=== PATIENT | female | born 1980 | race African-American/Black ===

== ENCOUNTER 2016-07-22 10:43 | Emergency (ER) | payer MEDICAID, OTHER ==
[~2016-07-22] VITALS: Ht 162.6 cm; Wt 143.6 kg
[~2016-07-22 10:43] MED LIST: 1-ME1LIQ PO; ADVAI500I PO; ALBU8I INH; BENZ100 PO; GUAI200UDC PO; PRED20 PO; SULF-154 PO
[2016-07-22 10:44] VITALS: BP 167/95; PULSE 92; RESP 20; TEMP 98.3; O2SAT 93
--- NOTE | 2016-07-22 12:09 | PD ---
HPI Chief Complaint: Respiratory Symptoms Time Seen by Provider: 12:04 Travel History International Travel<30 days: No Contact w/Intl Traveler<30days: No Traveled to known affect area: No History of Present Illness HPI Patient is a 36-year-old female presenting to emergency department for evaluation of shortness of breath. Patient reports a history of asthma, she's been out of her Advair and pro-air for approximately one week. Patient reports getting short of breath with the slightest movement. Patient also reports wheezing, subjective fever, chills, cough, nasal congestion. She denies any headaches, nausea, vomiting, abdominal pain. PFSH Past Medical History Arthritis: Yes Asthma: Yes Blood Disorders: No Anxiety: No Depression: No Heart Rhythm Problems: No Cancer: No High Cholesterol: No Chemotherapy: No Chest Pain: No Congestive Heart Failure: No COPD: No Cerebrovascular Accident: No Diabetes: No Diminished Hearing: No Endocrine: No Gastrointestinal Disorders: No GERD: No Glaucoma: No Headaches: No Hepatitis: No Hiatal Hernia: No Hypertension: Yes Immune Disorder: No Kidney Stones: No Neurologic: No Psychiatric: No Reproductive: No Respiratory: Yes (ASTHMA) Myocardial Infarction: No Radiation Therapy: No Renal Failure: No Seizures: No Sickle Cell Disease: No Sleep Apnea: No Thyroid Disease: No Ulcer: No PNEUMOCCOCAL Vaccine (Year): 2 ?: Not LMP: 07/21/2016 Menopausal: No : 3 Para: 2 Miscarriage: 1 Tubal Ligation: Yes Past Surgical History Abdominal Surgery: No AICD: No Cardiac Surgery: No Section: Yes (X2) Ear Surgery: No Endocrine Surgery: No Eye Surgery: No Genitourinary Surgery: No Gynecologic Surgery: Yes (csection x2) Neurologic Surgery: No Oral Surgery: No Pacemaker: No Thoracic Surgery: No Social History Alcohol Use: No Tobacco Use: No Substance Use: No Allergies-Medications (Allergen,Severity, Reaction): Coded Allergies: Moreira (Verified Allergy, Severe, HIVES, 07/22/16) Pineapple (Verified Allergy, Severe, HIVES, 07/22/16) Reported Meds & Prescriptions Reported Meds & Active Scripts Active Prednisone 20 Mg Tab 20 Mg PO BID 5 Days Ventolin Hfa 18 GM Inh (Albuterol Sulfate) 90 Mcg/Act Aer 2 Puff INH Q4-6H PRN Advair Diskus Inh (Fluticasone-Salmeterol Inh) 500-50 Mcg/Blist Aer 1 Puff INH BID Rinse mouth after use. Review of Systems Except as stated in HPI: all other systems reviewed are Neg General / Constitutional: Positive: Fever, Chills HENT: Positive: Congestion, No: Headaches Cardiovascular: No: Chest Pain or Discomfort Respiratory: Positive: Cough, Shortness of Breath, Wheezing Gastrointestinal: No: Nausea, Abdominal Pain Musculoskeletal: No: Myalgias Physical Exam Narrative GENERAL: Obese, well-developed, alert female. Resting comfortably in no acute distress. SKIN: Warm and dry. HEAD: Atraumatic. Normocephalic. EYES: Pupils equal and round. No scleral icterus. No injection or drainage. ENT: No nasal bleeding or discharge. Mucous membranes pink and moist. NECK: Trachea midline. No JVD. CARDIOVASCULAR: Regular rate and rhythm. No murmur appreciated. RESPIRATORY: No accessory muscle use. Significant expiratory wheezing throughout, diminished in bases. No nasal flaring, no retractions, no increased work of breathing at rest. GASTROINTESTINAL: Abdomen obese, soft, non-tender, nondistended. Hepatic and splenic margins not palpable. MUSCULOSKELETAL: No obvious deformities. No clubbing. No cyanosis. No edema. NEUROLOGICAL: Awake and alert. No obvious cranial nerve deficits. Motor grossly within normal limits. Normal speech. PSYCHIATRIC: Appropriate mood and affect; insight and judgment normal. Data Data Last Documented VS Vital Signs Date Time Temp Pulse Resp B/P Pulse Ox O2 Delivery O2 Flow Rate FiO2 07/22/16 15:30 80 19 169/95 95 07/22/16 12:26 21 07/22/16 10:44 98.3 Room Air Orders Complete Blood Count With Diff (07/22/16 12:03) Comprehensive Metabolic Panel (07/22/16 12:03) Chest, Pa & Lat (07/22/16 12:03) Methylprednisolone So Succ Inj (Solumedr (07/22/16 12:15) Albuterol-Ipratropium Neb (Duoneb Neb) (07/22/16 12:15) Albuterol Neb (Albuterol Neb) (07/22/16 13:45) Labs Laboratory Tests Test 07/22/16 12:15 White Blood Count 6.0 TH/MM3 Red Blood Count 4.36 MIL/MM3 Hemoglobin 11.6 GM/DL Hematocrit 34.4 % Mean Corpuscular Volume 79.0 FL Mean Corpuscular Hemoglobin 26.6 PG Mean Corpuscular Hemoglobin 33.7 % Concent Red Cell Distribution Width 15.1 % Platelet Count 492 TH/MM3 Mean Platelet Volume 6.9 FL Neutrophils (%) (Auto) 54.1 % Lymphocytes (%) (Auto) 27.8 % Monocytes (%) (Auto) 5.5 % Eosinophils (%) (Auto) 11.2 % Basophils (%) (Auto) 1.4 % Neutrophils # (Auto) 3.2 TH/MM3 Lymphocytes # (Auto) 1.7 TH/MM3 Monocytes # (Auto) 0.3 TH/MM3 Eosinophils # (Auto) 0.7 TH/MM3 Basophils # (Auto) 0.1 TH/MM3 CBC Comment DIFF FINAL Differential Comment Sodium Level 142 MEQ/L Potassium Level 3.7 MEQ/L Chloride Level 107 MEQ/L Carbon Dioxide Level 24.7 MEQ/L Anion Gap 10 MEQ/L Blood Urea Nitrogen 8 MG/DL Creatinine 0.72 MG/DL Estimat Glomerular Filtration 111 ML/MIN Rate Random Glucose 89 MG/DL Calcium Level 9.1 MG/DL Total Bilirubin 0.4 MG/DL Aspartate Amino Transf 10 U/L (AST/SGOT) Alanine Aminotransferase 15 U/L (ALT/SGPT) Alkaline Phosphatase 70 U/L Total Protein 8.5 GM/DL Albumin 3.6 GM/DL MDM Medical Decision Making Medical Screen Exam Complete: Yes Emergency Medical Condition: Yes Interpretation(s) Vital Signs Date Time Temp Pulse Resp B/P Pulse Ox O2 Delivery O2 Flow Rate FiO2 07/22/16 10:44 98.3 92 20 167/95 93 Room Air Differential Diagnosis Abdomen exacerbation versus bronchitis versus pneumonia versus other Narrative Course Patient is a 36-year-old female presenting to emergency for evaluation of shortness of breath and wheezing. Patient has a history of asthma, currently out of Advair and pro-air. Additionally patient has had accompanying cold symptoms. DuoNeb 3, Solu-Medrol, chest x-ray ordered and pending. Initial workup initiated in triage. Patient will be kept in triage room 2 for breathing treatments in order to optimize respiratory status. After which she will be transferred to a medical bed when available and care will be assumed by the provider. Scripts Prednisone 20 Mg Tab20 Mg PO BID 5 Days Ref 0 Prov:Mary Alice Glover DO 07/22/16 Albuterol 18 GM Inh (Ventolin Hfa 18 GM Inh)90 Mcg/Act Aer2 Puff INH Q4-6H PRN ( SHORTNESS OF BREATH) #1 INHALER Ref 1 Prov:Mary Alice Glover DO 07/22/16 Fluticasone-Salmeterol Inh (Advair Diskus Inh)500-50 Mcg/Blist Aer1 Puff INH BID #1 INHALER Ref 1 Rinse mouth after use. Prov:Mary Alice Glover DO 07/22/16 Jennie Goldberg Jul 22, 2016 12:08
[2016-07-22] MEDS ORDERED: methylPREDNISolone SOD SUCC 125 MG/2 ML VIAL IM ONE (12:15)
[2016-07-22] MEDS: RESP: ALBUTEROL 2.5 MG/IPRATROPIUM 0.5 MG NEB (SCH) INH (12:22)
[2016-07-22 12:26] VITALS: O2SAT 99
--- NOTE | 2016-07-22 12:31 | RADRPT ---
EXAM DATE/TIME: 07/22/2016 12:31 [facility] COMPARISON: No previous studies available for comparison. INDICATIONS : Wheezing. Short of breath. MEDICAL HISTORY : Hypertension. Asthma. SURGICAL HISTORY : section. Tubal ligation. Right foot surgery. ENCOUNTER: Initial ACUITY: 2 days PAIN SCORE: 0/10 LOCATION: Bilateral chest FINDINGS: PA and lateral views of the chest demonstrate the lungs to be symmetrically aerated without evidence of mass, infiltrate or effusion. The cardiomediastinal contours are unremarkable. Osseous structure s are intact. CONCLUSION: No acute disease. Deshawn Tabor MD FACR on July 22, 2016 at 12:29 Board Certified Radiologist. This report was verified electronically.
[2016-07-22 12:40] LABS: AUTOMATED NEUTROPHIL # 3.2 TH/MM3 (1.8-7.7); BASOPHIL # 0.1 TH/MM3 (0-0.2); BASOPHIL % 1.4 % (0.0-2.0); EOSINOPHIL # 0.7 TH/MM3 (0-0.4); EOSINOPHIL % 11.2 % (0.0-4.0); HEMATOCRIT 34.4 % (35.0-46.0); HEMO FLAGS DIFF FINAL; LYMPH % 27.8 % (9.0-44.0); LYMPHOCYTE # 1.7 TH/MM3 (1.0-4.8); MEAN CORPUSCULAR HEMOGLOBIN 26.6 PG (27.0-34.0); MEAN CORPUSCULAR HGB CONC 33.7 % (32.0-36.0); MONO % 5.5 % (0.0-8.0); NEUT % 54.1 % (16.0-70.0); PLATELET COUNT 492 TH/MM3 (150-450); RED BLOOD COUNT 4.36 MIL/MM3 (4.00-5.30); RED CELL DISTRIBUTION WIDTH 15.1 % (11.6-17.2)
[2016-07-22 12:59] LABS: ALT (GPT) 15 U/L (10-53); ANION GAP 10 MEQ/L (5-15); AST (GOT) 10 U/L (15-37); BICARBONATE 24.7 MEQ/L (21.0-32.0); BLOOD UREA NITROGEN 8 MG/DL (7-18); CHLORIDE 107 MEQ/L (98-107); GLOMERULAR FILTRATION RATE 111 ML/MIN (>89); POTASSIUM 3.7 MEQ/L (3.5-5.1); SODIUM (NA) 142 MEQ/L (136-145)
[2016-07-22 13:01] LABS: ALKALINE PHOSPHATASE 70 U/L (45-117); TOTAL BILIRUBIN ADULT 0.4 MG/DL (0.2-1.0)
--- NOTE | 2016-07-22 13:38 | PD ---
Physical Exam Time Seen by Provider: 13:37 Narrative 36-year-old female with a history of asthma and hypertension presents to the emergency department for evaluation of shortness of breath and wheezing for one week. Patient was seen by provider in triage initiated workup, please see her documentation. The patient states that she ran out of her Advair and albuterol inhalers one week ago. States that she's had a mild nonproductive cough with runny nose and nasal congestion for the past week with worsening shortness of breath and wheezing. Shortness of breath and wheezing is exacerbated with activity. Denies any fever, chills, nausea, vomiting, chest pain, abdominal pain. States that she feels like this is a typical asthma exacerbation for her. Denies any smoking history. Denies , last menstrual period 1 week ago. No other complaints. He was given Solu-Medrol 125 IM and DuoNeb 3 out in triage and is reporting improvement of symptoms but still has shortness of breath.. GENERAL: Well-nourished and well-developed pleasant patient in no acute distress who is nontoxic appearing. SKIN: Warm and dry. HEAD: Normocephalic and atraumatic. EYES: No injection, drainage, or hyphema noted. PERRLA. EOMI. ENT: No nasal drainage noted. Oropharynx is clear. NECK: Supple and the trachea is midline. CARDIOVASCULAR: Regular rate and rhythm. RESPIRATORY: Bilateral wheezing but with good air movement. No accessory muscle use, rhonchi or crackles. Speaking in full sentences without difficulty. GASTROINTESTINAL: Abdomen is soft, non-tender, and nondistended. MUSCULOSKELETAL: No obvious deformities, swelling, cyanosis, or ecchymosis is present throughout the upper and lower extremities. Patient has full range of motion without any signs of neurovascular compromise. NEUROLOGICAL: Awake, alert, and oriented. Normal speech and gait. Cranial nerves are grossly intact. Data Data Last Documented VS Vital Signs Date Time Temp Pulse Resp B/P Pulse Ox O2 Delivery O2 Flow Rate FiO2 07/22/16 12:26 99 21 07/22/16 10:44 98.3 92 20 167/95 Room Air Orders Complete Blood Count With Diff (07/22/16 12:03) Comprehensive Metabolic Panel (07/22/16 12:03) Chest, Pa & Lat (07/22/16 12:03) Methylprednisolone So Succ Inj (Solumedr (07/22/16 12:15) Albuterol-Ipratropium Neb (Duoneb Neb) (07/22/16 12:15) Albuterol Neb (Albuterol Neb) (07/22/16 13:45) Labs Laboratory Tests Test 07/22/16 12:15 White Blood Count 6.0 TH/MM3 Red Blood Count 4.36 MIL/MM3 Hemoglobin 11.6 GM/DL Hematocrit 34.4 % Mean Corpuscular Volume 79.0 FL Mean Corpuscular Hemoglobin 26.6 PG Mean Corpuscular Hemoglobin 33.7 % Concent Red Cell Distribution Width 15.1 % Platelet Count 492 TH/MM3 Mean Platelet Volume 6.9 FL Neutrophils (%) (Auto) 54.1 % Lymphocytes (%) (Auto) 27.8 % Monocytes (%) (Auto) 5.5 % Eosinophils (%) (Auto) 11.2 % Basophils (%) (Auto) 1.4 % Neutrophils # (Auto) 3.2 TH/MM3 Lymphocytes # (Auto) 1.7 TH/MM3 Monocytes # (Auto) 0.3 TH/MM3 Eosinophils # (Auto) 0.7 TH/MM3 Basophils # (Auto) 0.1 TH/MM3 CBC Comment DIFF FINAL Differential Comment Sodium Level 142 MEQ/L Potassium Level 3.7 MEQ/L Chloride Level 107 MEQ/L Carbon Dioxide Level 24.7 MEQ/L Anion Gap 10 MEQ/L Blood Urea Nitrogen 8 MG/DL Creatinine 0.72 MG/DL Estimat Glomerular Filtration 111 ML/MIN Rate Random Glucose 89 MG/DL Calcium Level 9.1 MG/DL Total Bilirubin 0.4 MG/DL Aspartate Amino Transf 10 U/L (AST/SGOT) Alanine Aminotransferase 15 U/L (ALT/SGPT) Alkaline Phosphatase 70 U/L Total Protein 8.5 GM/DL Albumin 3.6 GM/DL [facility] Supervised Visit with JULIANA: No Differential Diagnosis Asthma exacerbation versus bronchitis versus URI versus medication refill Narrative Course 36-year-old female presents to the emergency department for evaluation of shortness of breath and wheezing for one week. Patient is afebrile. Initially she was a little tachycardic with a heart rate of 92 bpm and oxygen saturation was 93% on room air. She was given 3 duo nebs and Solu-Medrol in triage with improvement of symptoms. Oxygen saturation is now 98% on room air. She still having a little bit of wheezing and complaining of shortness of breath exacerbated with walking. When she has walked her oxygen saturations maintained at 95-98%. Labs and chest x-ray were ordered per triage provider and are unremarkable. Chest x-ray is negative. We'll give her 2 more albuterol nebulizers here and discharge her with instructions for Advair, albuterol and short course of steroids. I discussed the case with my attending physician Dr. Glover who is aware of the patients history, physical examination findings, and treatment plan. Diagnosis Primary Impression: Asthma with acute exacerbation in adult Additional Impression: Medication refill Referrals: Primary Care Physician Patient Instructions: Asthma (ED), General Instructions Additional Instruction: Inhalers as prescribed. Take medication as prescribed with food and a full glass of water. Follow-up with your Primary Care Physician. Return to the ED for any acute worsening of symptoms. Med/Other Pt SpecificInfo: Prescription(s) given Scripts Prednisone 20 Mg Tab20 Mg PO BID 5 Days Ref 0 Prov:Mary Alice Glover DO 07/22/16 Albuterol 18 GM Inh (Ventolin Hfa 18 GM Inh)90 Mcg/Act Aer2 Puff INH Q4-6H PRN ( SHORTNESS OF BREATH) #1 INHALER Ref 1 Prov:Mary Alice Glover DO 07/22/16 Fluticasone-Salmeterol Inh (Advair Diskus Inh)500-50 Mcg/Blist Aer1 Puff INH BID #1 INHALER Ref 1 Rinse mouth after use. Prov:Mary Alice Glover DO 07/22/16 Disposition: 01 DISCHARGE HOME Condition: Stable Estella Zelaya Jul 22, 2016 13:38
[2016-07-22] MEDS: RESP: ALBUTEROL 2.5 MG/3 ML NEB (SCH) INH ×2 (14:02→14:03)
[2016-07-22] MEDS ORDERED: VENTAER INH (14:06)
[2016-07-22] MEDS ORDERED: ADVA500A INH (14:06)
[2016-07-22] MEDS ORDERED: PRED20 PO (14:06)
[2016-07-22 15:30] VITALS: BP 169/95
== END 2016-07-22 15:38 | disposition home or self-care (01) ==
LOC: NEPC 10:43
DX: J45.901 Unspecified asthma with (acute) exacerbation (principal); R00.0 Tachycardia, unspecified; I10 Essential (primary) hypertension
CPT/HCPCS: 71020; 80053; 85025; 94640; 94664; 96372; 99283; J2930; J7613

== ENCOUNTER 2017-05-11 11:04 | Emergency (ER) | payer MEDICAID ==
[~2017-05-11] VITALS: Ht 162.6 cm; Wt 130.0 kg
[~2017-05-11 11:04] MED LIST changes: -1-ME1LIQ PO; +ADVA500A INH; -ADVAI500I PO; -ALBU8I INH; -BENZ100 PO; -GUAI200UDC PO; -SULF-154 PO; +VENTAER INH
[2017-05-11 11:05] VITALS: BP 182/100; PULSE 75; RESP 12; TEMP 98.4; O2SAT 99
[2017-05-11] MEDS ORDERED: VIST50CA PO (12:03)
--- NOTE | 2017-05-11 12:34 | PD ---
HPI . Allergic reaction Chief Complaint: Allergic/Adverse Reaction Time Seen by Provider: 11:53 Travel History International Travel<30 days: No Contact w/Intl Traveler<30days: No Traveled to known affect area: No History of Present Illness HPI This patient presents with a chief complaint of an allergic reaction which started last night about 6 PM. She states that she is allergic to cherries. She had ordered a milk shake at a local fast food restaurant. There was a sinha in the bottom of the shake. The swelling developed itching around her mouth and a tightness in her throat. She states that she took 2 doses of Benadryl, 50 mg each at 7:30 and then again at 9:45 last night. Symptoms persisted. She has not taken any further medication since then. She presents to us today for treatment. No modifying factors. Symptoms have been persistent since last night about 6 PM. PFSH Past Medical History Arthritis: Yes Asthma: Yes Blood Disorders: No Anxiety: No Depression: No Heart Rhythm Problems: No Cancer: No High Cholesterol: No Chemotherapy: No Chest Pain: No Congestive Heart Failure: No COPD: No Cerebrovascular Accident: No Diabetes: No Diminished Hearing: No Endocrine: No Gastrointestinal Disorders: No GERD: No Glaucoma: No Headaches: No Hepatitis: No Hiatal Hernia: No Hypertension: Yes Immune Disorder: No Kidney Stones: No Neurologic: No Psychiatric: No Reproductive: No Respiratory: Yes (ASTHMA) Myocardial Infarction: No Radiation Therapy: No Renal Failure: No Seizures: No Sickle Cell Disease: No Sleep Apnea: No Thyroid Disease: No Ulcer: No PNEUMOCCOCAL Vaccine (Year): 2 ?: Not Menopausal: No : 3 Para: 2 Miscarriage: 1 Tubal Ligation: Yes Past Surgical History Abdominal Surgery: No AICD: No Cardiac Surgery: No Section: Yes (X2) Ear Surgery: No Endocrine Surgery: No Eye Surgery: No Genitourinary Surgery: No Gynecologic Surgery: Yes (csection x2) Neurologic Surgery: No Oral Surgery: No Pacemaker: No Thoracic Surgery: No Social History Alcohol Use: No Tobacco Use: No Substance Use: No Allergies-Medications (Allergen,Severity, Reaction): Coded Allergies: sinha (Unverified Allergy, Severe, HIVES, 05/11/17) pineapple (Unverified Allergy, Severe, HIVES, 05/11/17) Reported Meds & Prescriptions Reported Meds & Active Scripts Active Vistaril (Hydroxyzine Pamoate) 50 Mg Cap 50 Mg PO QID PRN Prednisone 20 Mg Tab 20 Mg PO BID 5 Days Ventolin Hfa 18 GM Inh (Albuterol Sulfate) 90 Mcg/Act Aer 2 Puff INH Q4-6H PRN Advair Diskus Inh (Fluticasone-Salmeterol Inh) 500-50 Mcg/Blist Aer 1 Puff INH BID Rinse mouth after use. Review of Systems Except as stated in HPI: all other systems reviewed are Neg HENT: Positive: Other (tightness in her throat) Respiratory: Positive: Shortness of Breath Skin: Positive Itching (around her mouth) Physical Exam Narrative GENERAL: Awake and alert and in no acute distress. SKIN: Warm and dry. I don't appreciate a rash around her mouth. There is no angioedema or swelling of the skin. HEAD: Normocephalic/atraumatic. EYES: Pupils are equal. Extraocular movements are intact. ENT: Oropharynx has no edema or erythema. NECK: Normal range of motion. CARDIOVASCULAR: Regular rate and rhythm. RESPIRATORY: She is having no respiratory distress. She is speaking in complete sentences without any respiratory difficulty. Her lungs are clear with full air movement throughout. MUSCULOSKELETAL: Atraumatic. NEUROLOGICAL: Nonfocal. PSYCHIATRIC: Appropriate mood and affect. Data Data Last Documented VS Vital Signs Date Time Temp Pulse Resp B/P (MAP) Pulse Ox O2 Delivery O2 Flow Rate FiO2 05/11/17 12:14 05/11/17 11:05 98.4 75 12 99 Orders Orders Ed Discharge Order (05/11/17 12:03) MDM Medical Decision Making Medical Screen Exam Complete: Yes Emergency Medical Condition: Yes Differential Diagnosis My differential diagnosis of an allergic reaction includes but is not limited to localized allergic reaction, systemic allergic reaction, anaphylaxis Narrative Course This patient presents stating that she is having an allergic reaction to a sinha which she ate last night inadvertently. She has no objective signs or symptoms of allergy. I have given her a prescription for Vistaril. Diagnosis Primary Impression: Allergic reaction to food Qualified Codes: T78.1XXA - Other adverse food reactions, not elsewhere classified, initial encounter Patient Instructions: General Instructions Departure Forms: Tests/Procedures Scripts Hydroxyzine Pamoate (Vistaril) 50 Mg Cap 50 MG PO QID Y for ALLERGIC REACTION, #30 CAP 0 Refills Prov: Oeters,Jennifer Katie MD 05/11/17 Disposition: 01 DISCHARGE HOME Condition: Stable Jennifer Arboleda MD May 11, 2017 12:34
== END 2017-05-11 12:15 | disposition home or self-care (01) ==
LOC: NEPD 11:04
DX: T78.1XXA Other adverse food reactions, not elsewhere classified, initial encounter (principal); J45.909 Unspecified asthma, uncomplicated
CPT/HCPCS: 99283

== ENCOUNTER 2017-10-25 20:29 | Emergency (ER) | payer MEDICAID ==
[~2017-10-25] VITALS: Ht 162.6 cm; Wt 140.0 kg
[~2017-10-25 20:29] MED LIST changes: +VIST50CA PO
[2017-10-25 20:42] VITALS: BP 166/98; PULSE 80; RESP 24; TEMP 98.2; O2SAT 96
[2017-10-25] MEDS ORDERED: SODIUM CHLORIDE 0.9% FLUSH 10 ML FLUSH IVF PRN (21:00)
[2017-10-25] MEDS ORDERED: RESP: BUDESONIDE 0.5 MG/2 ML NEB NEB ONE (21:00)
[2017-10-25] MEDS ORDERED: methylPREDNISolone SOD SUCC 125 MG/2 ML VIAL IV PUSH ONE (21:00)
--- NOTE | 2017-10-25 21:08 | PD ---
HPI Chief Complaint: Respiratory Symptoms Time Seen by Provider: 20:52 Travel History International Travel<30 days: No Contact w/Intl Traveler<30days: No Traveled to known affect area: No History of Present Illness HPI Patient is a 37-year-old female presenting to the emergency department for evaluation of shortness of breath and wheezing. Patient states it started yesterday, she states she has had a history of asthma and is out of her inhalers. She denies any fever, chills, abdominal pain, chest pain. She does state that she has had a cough which is sometimes productive with clear sputum. Symptom onset was gradual, symptoms are moderate in nature. Symptoms are normally alleviated with her inhalers however again she is out of them now. PFSH Past Medical History Arthritis: Yes Asthma: Yes Hypertension: Yes Tetanus Vaccination: < 5 Years Influenza Vaccination: Yes PNEUMOCCOCAL Vaccine (Year): 2 ?: Not LMP: 10/21/2017 : 3 Para: 2 Miscarriage: 1 Tubal Ligation: Yes Past Surgical History Section: Yes (X2) Social History Alcohol Use: No Tobacco Use: No Substance Use: No Allergies-Medications (Allergen,Severity, Reaction): Coded Allergies: sinha (Unverified Allergy, Severe, HIVES, 10/25/17) pineapple (Unverified Allergy, Severe, HIVES, 10/25/17) Reported Meds & Prescriptions Reported Meds & Active Scripts Active Vistaril (Hydroxyzine Pamoate) 50 Mg Cap 50 Mg PO QID PRN Prednisone 20 Mg Tab 20 Mg PO BID 5 Days Ventolin Hfa 18 GM Inh (Albuterol Sulfate) 90 Mcg/Act Aer 2 Puff INH Q4-6H PRN Advair Diskus Inh (Fluticasone-Salmeterol Inh) 500-50 Mcg/Blist Aer 1 Puff INH BID Rinse mouth after use. Review of Systems Except as stated in HPI: all other systems reviewed are Neg General / Constitutional: No: Fever, Chills HENT: No: Headaches Cardiovascular: No: Chest Pain or Discomfort Respiratory: Positive: Cough, Shortness of Breath Gastrointestinal: No: Nausea, Vomiting, Abdominal Pain Musculoskeletal: No: Myalgias Neurologic: No: Dizziness Physical Exam Narrative GENERAL: Obese, well-developed, alert -British female. Resenting in no acute distress. SKIN: Warm and dry. HEAD: Atraumatic. Normocephalic. EYES: Pupils equal and round. No scleral icterus. No injection or drainage. ENT: No nasal bleeding or discharge. Mucous membranes pink and moist. NECK: Trachea midline. No JVD. CARDIOVASCULAR: Regular rate and rhythm. RESPIRATORY: No accessory muscle use. Breath sounds diminished in bases, expiratory wheezes throughout. GASTROINTESTINAL: Abdomen soft, non-tender, nondistended. Hepatic and splenic margins not palpable. MUSCULOSKELETAL: Extremities without clubbing, cyanosis, or edema. No obvious deformities. NEUROLOGICAL: Awake and alert. No obvious cranial nerve deficits. Motor grossly within normal limits. Five out of 5 muscle strength in the arms and legs. Normal speech. PSYCHIATRIC: Appropriate mood and affect; insight and judgment normal. Data Data Last Documented VS Vital Signs Date Time Temp Pulse Resp B/P (MAP) Pulse Ox O2 Delivery O2 Flow Rate FiO2 10/25/17 21:40 80 20 98 Room Air 10/25/17 20:42 98.2 166/98 (120) Orders Orders Chest, Pa & Lat (10/25/17 20:55) Iv Access Insert/Monitor (10/25/17 20:55) Oximetry (10/25/17 20:55) Methylprednisolone So Succ Inj (Solumedr (10/25/17 21:00) Albuterol-Ipratropium Neb (Duoneb Neb) (10/25/17 21:00) Sodium Chloride 0.9% Flush (Ns Flush) (10/25/17 21:00) Budesonide Neb (Pulmicort Respule Neb) (10/25/17 21:00) Ed Discharge Order (10/25/17 22:24) MDM Medical Decision Making Medical Screen Exam Complete: Yes Emergency Medical Condition: Yes Interpretation(s) Vital Signs Date Time Temp Pulse Resp B/P (MAP) Pulse Ox O2 Delivery O2 Flow Rate FiO2 10/25/17 21:40 80 20 98 Room Air 10/25/17 21:31 20 10/25/17 21:15 99 10/25/17 20:42 98.2 80 24 166/98 (120) 96 Differential Diagnosis Rhonchi is versus pneumonia versus asthma exacerbation versus other Narrative Course Patient is a 37-year-old female presenting to the emergency department for evaluation of asthma exacerbation. Patient is tachypneic on arrival however she is well oxygenated on room air. Imaging and nebulizer treatments ordered. Chest x-ray shows no acute disease. Patient reports improvement in her breathing after 3 duo nebs and budesonide nebulizer treatment. She was also given 125 mg of Solu-Medrol IV. Plan of care was discussed with my attending physician. At this time patient will be discharged home. She will be given refills of her medications. Patient was encouraged to follow-up with her primary doctor or return to emergency department for any new worsening symptoms. Patient verbalized understanding these instructions. Patient stable for discharge Diagnosis Primary Impression: Asthma with acute exacerbation in adult Qualified Codes: J45.901 - Unspecified asthma with (acute) exacerbation Referrals: [facility] Patient Instructions: Asthma (ED), General Instructions Additional Instructions: Follow-up with your primary doctor at the [facility] Return to emergency department for any new or worsening symptoms Take medications as directed Med/Other Pt SpecificInfo: Prescription(s) given Scripts Azithromycin (Azithromycin) 250 Mg Tab 250 MG PO DIRECTED for Infection, #6 TAB 0 Refills Take 2 tabs (500 mg) on day 1 then 1 tab daily x 4 days. Prov: Jennie Goldberg 10/25/17 Prednisone (Prednisone) 50 Mg Tab 50 MG PO DAILY for 5 Days, #5 TAB 0 Refills Prov: Jennie Goldberg 10/25/17 Albuterol 18 GM Inh (Ventolin Hfa 18 GM Inh) 90 Mcg/Act Aer 2 PUFF INH Q4-6H Y for SHORTNESS OF BREATH, #1 INHALER 1 Refill Prov: Jennie Goldberg 10/25/17 Fluticasone-Salmeterol Inh (Advair Diskus Inh) 500-50 Mcg/Blist Aer 1 PUFF INH BID, #1 INHALER 1 Refill Rinse mouth after use. Prov: Jennie Goldberg 10/25/17 Disposition: 01 DISCHARGE HOME Condition: Stable Jennie Goldberg Oct 25, 2017 21:08
[2017-10-25 21:15] VITALS: O2SAT 99
[2017-10-25] MEDS: RESP: ALBUTEROL 2.5 MG/IPRATROPIUM 0.5 MG NEB (SCH) INH (21:18)
--- NOTE | 2017-10-25 21:24 | RADRPT ---
EXAM DATE: 10/25/2017 9:18 PM EDT AGE/SEX: 37 years / Female INDICATIONS: Wheezing CLINICAL DATA: This is the patient's initial encounter. Patient reports that signs and symptoms have been present for 3 days and indicates a pain score of 1/10. MEDICAL/SURGICAL HISTORY: Asthma. None. COMPARISON: [facility] [place], CHEST PA & LAT, 07/22/2016. . FINDINGS: PA and lateral views of the chest demonstrate the lungs to be symmetrically aerated without evidence of mass, infiltrate or effusion. The cardiomediastinal contours are unremarkable. Osseous structures are intact. CONCLUSION: No active disease. Electronically signed by: Abdoulaye Marie MD 10/25/2017 9:23 PM EDT
[2017-10-25 21:40] VITALS: PULSE 80; RESP 20; O2SAT 98
[2017-10-25] MEDS ORDERED: PRED50 PO (22:29)
[2017-10-25] MEDS ORDERED: ADVA500A INH (22:29)
[2017-10-25] MEDS ORDERED: AZIT250T3 PO (22:29)
[2017-10-25] MEDS ORDERED: VENTAER INH (22:29)
== END 2017-10-25 22:40 | disposition home or self-care (01) ==
LOC: NEPE 20:29
DX: J45.901 Unspecified asthma with (acute) exacerbation (principal); I10 Essential (primary) hypertension; Z87.39 Personal history of other diseases of the musculoskeletal system and connective tissue
CPT/HCPCS: 71046; 94640; 94664; 96374; 99285; J2930; J7626